=== PATIENT | female | born 1990 ===

== ENCOUNTER 2024-09-26 08:35 | Outpatient (CLI) | payer OTHER, SELFPAY ==
--- NOTE | ~2024-09-26 | MR_ITS ---
EXAMINATION: MR lumbar spine wo con DATE: 09/26/2024 09:26 INDICATION: Lumbosacral radiculopathy TECHNIQUE: Magnetic resonance imaging (MRI) of the lumbar spine was performed without intravenous con trast. Sequences included sagittal T2-weighted FSE, sagittal T2-weighted FS FSE, sagittal T1-weighted FSE, and axial T2-weighted FSE. COMPARISON: None FINDINGS: Alignment is normal. Vertebral body heights are normal. Normal marrow signal. Mild disc height loss and desiccation at L4-L5 with minimal desiccation at L5-S1. More cephalad lumbar and lower thoracic d iscs are normal. The conus medullaris terminates at L1. There is normal signal in the caudal spinal c ord. Paravertebral soft tissues are unremarkable. The following disc levels are specifically discusse d: T12-L1 through L3-L4: The disc does not extend beyond the endplate margin. There is mild bilateral fa cet joint osteoarthritis. There is no neural foraminal stenosis. There is no central canal stenosis. L4-L5: Disc is mildly bulging with annular fissure. There is mild bilateral facet joint osteoarthriti s. There is minimal bilateral neural foraminal stenosis. There is minimal central canal stenosis. L5-S1: Disc is mildly bulging with superimposed left foraminal zone annular fissure and minimal disc protrusion. There is mild bilateral facet joint osteoarthritis. There is mild bilateral, left greater than right neural foraminal stenosis. There is minimal central canal stenosis with mild narrowing of the left lateral recess. IMPRESSION: 1. Mild lower lumbar spondylosis. Reviewed, dictated and finalized at location A.
== END 2024-09-26 08:36 | disposition home or self-care (01) ==
PROVIDERS: PCP Internal Medicine; Visit Provider Internal Medicine
DX: M47.27 Other spondylosis with radiculopathy, lumbosacral region (principal)
CPT/HCPCS: 72148